=== PATIENT | female | born 1935 | race Caucasian/White ===

== ENCOUNTER 2016-12-25 10:43 | Inpatient (IN) | payer OTHER ==
[~2016-12-25] VITALS: Ht 152.4 cm; Wt 69.9 kg
[~2016-12-25 10:43] MED LIST: KEFLEX500 MG PO; ULTRAM50 MG PO; ZOCOR20 MG PO
[2016-12-25 12:02] LABS: EOSINOPHIL (%) 1.2 % (0-5); EOSINOPHIL COUNT 0.1 K/uL (0-0.3); HEMATOCRIT 41.8 % (36.0-46.0); IMMATURE GRANULOCYTE (%) 0.4 % (0.0-0.7); INSTRUMENT ABS NEUTROPHIL CT 5.2 K/uL; LYMPHOCYTE COUNT 1.8 K/uL (1.0-2.8); MCH 29.1 PG (29.0-34.0); MCHC 33.3 G/DL (30.0-36.0); MCV 87.4 FL (83-99); MEAN PLAT.VOLUME 11.5 uM^3 (9.5-12.4); MONOCYTE (%) 7.3 % (3-12); MONOCYTE COUNT 0.6 K/uL (0-0.8); NEUTROPHIL (%) 67.7 % (45-76); NEUTROPHIL COUNT 5.2 K/uL (1.8-6.4); PLATELET COUNT 237 K/uL (156-360); RBC DIS.WIDTH-CV 12.3 % (11.8-14.6); RBC DIS.WIDTH-SD 39.6 % (39-53); RED BLOOD COUNT 4.78 M/uL (3.80-5.20); WHITE BLOOD COUNT 7.7 K/uL (4.1-10.2)
[2016-12-25 12:05] LABS: ADD MIUA? YES; BILIRUBIN NEGATIVE; BLOOD SMALL; COLOR YELLOW ((YELLOW)); GLUCOSE (STRIP) NEGATIVE; KETONES 5; LEUKOCYTES LARGE; NITRITE POSITIVE; PROTEIN (STRIP) 30; SPECIFIC GRAVITY 1.017 (1.000-1.030); UROBILINOGEN 0.2 MG/DL (0.2-1.0)
[2016-12-25 12:08] LABS: BACTERIA 3+ /HPF; EPITHELIAL CELLS RARE /HPF; MUCUS 1+ /LPF; RED BLOOD CELLS 20-30 /HPF (0-5); WHITE BLOOD CELLS TNTC /HPF (0-5)
[2016-12-25 12:12] LABS: CHLORIDE 105 mEq/L (99-109); POTASSIUM 3.6 mEq/L (3.7-5.4); SODIUM 140 mEq/L (136-147)
[2016-12-25 12:14] LABS: GLUCOSE 104 mg/dL (70-99)
[2016-12-25 12:15] LABS: ANION GAP 10 MEQ/L (2-14)
[2016-12-25 12:18] LABS: GFR ESTIMATE (CALCULATED) > 59 mL/min/
[2016-12-25 12:19] LABS: UREA NITROGEN (BUN) 17 mg/dL (9-23)
[2016-12-25 13:34] LABS: TROP-I INTERPRETATION NEGATIVE; TROPONIN-I < 0.01 ng/mL (0.0-0.30)
[2016-12-25] MEDS ORDERED: CYANOCOBALAM1000 MCG PO (14:42)
[2016-12-25] MEDS ORDERED: VITAMIN B-6100 MG PO (14:43)
[2016-12-25] MEDS ORDERED: VASELINE454 GM TP (14:44)
[2016-12-25] MEDS ORDERED: ADVIL200 MG PO (14:44)
[2016-12-25 16:55] VITALS: BP 174/74
[2016-12-25 17:40] VITALS: BP 160/67
[2016-12-25 19:40] VITALS: BP 165/72
[2016-12-25 23:13] VITALS: BP 174/74
[2016-12-26] VITALS (7 sets, daily range): BP systolic 112–189; BP diastolic 53–80
[2016-12-26 07:19] LABS: Estimated Average Glucose 108 mg/dL (70-123); HEMOGLOBIN A1c (GLYCOHEMOGLOB) 5.4 % HGB (Below 5.7)
[2016-12-26 07:31] LABS: ANION GAP 8 MEQ/L (2-14); CHLORIDE 109 MEQ/L (99-109); GFR ESTIMATE (CALCULATED) > 59 mL/min/; GLUCOSE 96 mg/dL (70-99); POTASSIUM 4.1 MEQ/L (3.7-5.4); SAMPLE HEMOLYSIS CHECK 0; SAMPLE ICTERIC CHECK 0; SAMPLE LIPEMIA CHECK 0; SODIUM 140 MEQ/L (136-147); UREA NITROGEN (BUN) 25 mg/dL (9-23)
[2016-12-26 07:32] LABS: HDL CHOLESTEROL 47 MG/DL (Desirable>=50); LDL CHOLESTEROL 104 mg/dL (Desirable<100); NON-HDL CHOLESTEROL 120 mg/dL (Desirable<160); TOTAL CHOLESTEROL 167 mg/dL (Desirable<200); TRIGLYCERIDES 78 MG/DL (Normal: <150)
[2016-12-27 03:53] VITALS: BP 167/74
[2016-12-27 05:34] LABS: HEMATOCRIT 35.8 % (36.0-46.0); MCH 29.6 PG (29.0-34.0); MCHC 33.5 G/DL (30.0-36.0); MCV 88.2 FL (83-99); MEAN PLAT.VOLUME 11.9 uM^3 (9.5-12.4); PLATELET COUNT 199 K/uL (156-360); RBC DIS.WIDTH-CV 13.1 % (11.8-14.6); RBC DIS.WIDTH-SD 42.4 % (39-53); RED BLOOD COUNT 4.06 M/uL (3.80-5.20); WHITE BLOOD COUNT 7.5 K/uL (4.1-10.2)
[2016-12-27 05:51] LABS: ANION GAP 8 MEQ/L (2-14); CHLORIDE 109 MEQ/L (99-109); GFR ESTIMATE (CALCULATED) 57 mL/min/; GLUCOSE 105 mg/dL (70-99); POTASSIUM 4.2 MEQ/L (3.7-5.4); SAMPLE HEMOLYSIS CHECK 0; SAMPLE ICTERIC CHECK 0; SAMPLE LIPEMIA CHECK 0; SODIUM 142 MEQ/L (136-147)
[2016-12-27 05:58] LABS: UREA NITROGEN (BUN) 39 mg/dL (9-23)
[2016-12-27 07:52] VITALS: BP 151/66
[2016-12-27 11:37] VITALS: BP 136/63
[2016-12-27 15:12] VITALS: BP 137/62
[2016-12-27 19:00] VITALS: BP 144/65
[2016-12-27 23:34] VITALS: BP 142/70
[2016-12-28 03:35] VITALS: BP 172/76
[2016-12-28 06:26] LABS: MCH 29.4 PG (29.0-34.0); MCHC 32.9 G/DL (30.0-36.0); MCV 89.2 FL (83-99); PLATELET COUNT 191 K/uL (156-360); RBC DIS.WIDTH-CV 12.9 % (11.8-14.6); RBC DIS.WIDTH-SD 42.4 % (39-53); RED BLOOD COUNT 3.81 M/uL (3.80-5.20); WHITE BLOOD COUNT 7.5 K/uL (4.1-10.2)
[2016-12-28 06:51] LABS: ANION GAP 6 MEQ/L (2-14); CHLORIDE 106 MEQ/L (99-109); GFR ESTIMATE (CALCULATED) > 59 mL/min/; GLUCOSE 109 mg/dL (70-99); POTASSIUM 4.1 MEQ/L (3.7-5.4); SAMPLE HEMOLYSIS CHECK 0; SAMPLE ICTERIC CHECK 0; SAMPLE LIPEMIA CHECK 0; SODIUM 137 MEQ/L (136-147); UREA NITROGEN (BUN) 36 mg/dL (9-23)
[2016-12-28 07:15] VITALS: BP 118/58
[2016-12-28 11:13] VITALS: BP 118/58
[2016-12-28 20:03] VITALS: BP 143/63
[2016-12-28 23:15] VITALS: BP 159/72
[2016-12-29 04:23] VITALS: BP 143/67
[2016-12-29 07:07] VITALS: BP 162/70
[2016-12-29] MEDS ORDERED: PRAVASTATIN SOD40 MG PO (07:38)
[2016-12-29] MEDS ORDERED: ASPIR-LOW81 MG PO (07:39)
[2016-12-29] MEDS ORDERED: LISINOPRIL20 MG PO (07:39)
[2016-12-29 11:17] VITALS: BP 147/67
== END 2016-12-29 16:03 | DRG 699 ==
LOC: EME 10:43 → EDOF 15:07 → 4EAST 15:07
PROVIDERS: Hospitalist; Internal Medicine; Internal Medicine Nephrology; Physician Assistant
DX: I70.1 Atherosclerosis of renal artery (principal); N39.0 Urinary tract infection, site not specified; I82.612 Acute embolism and thrombosis of superficial veins of left upper extremity; I16.0 Hypertensive urgency; R29.810 Facial weakness; E78.5 Hyperlipidemia, unspecified; I10 Essential (primary) hypertension; R21 Rash and other nonspecific skin eruption; M19.90 Unspecified osteoarthritis, unspecified site; Z91.14 Patient's other noncompliance with medication regimen; B96.20 Unspecified Escherichia coli [E. coli] as the cause of diseases classified elsewhere
CPT/HCPCS: 70450; 70551; 71020; 74185; 76770; 80048; 80061; 80069; 81003; 83036; 84484; 85025; 85027; 87077; 87086; 87186; 93005; 93971; 93975; 94799; 97530 GO; 97530 GP; 99281; 99285; J0360; J0696; J1650; J7050

== ENCOUNTER → 2017-01-25 | Outpatient (CLI) | payer OTHER ==
[~2017-01-25] MED LIST changes: +ADVIL200 MG PO; +ASPIR-LOW81 MG PO; +CYANOCOBALAM1000 MCG PO; +LISINOPRIL20 MG PO; +PRAVASTATIN SOD40 MG PO; +VASELINE454 GM TP; +VITAMIN B-6100 MG PO
== END | disposition home or self-care (01) ==
LOC: CDC 12:41
DX: I49.9 Cardiac arrhythmia, unspecified (principal); I51.7 Cardiomegaly; R94.31 Abnormal electrocardiogram [ECG] [EKG]
CPT/HCPCS: 93000

== ENCOUNTER 2017-02-15 02:42 | Inpatient (IN) | payer OTHER ==
[2017-02-15] VITALS (10 sets, daily range): BP systolic 90–183; BP diastolic 48–93
[~2017-02-15] VITALS: Ht 152.4 cm; Wt 66.5 kg
[2017-02-15 03:02] LABS: EOSINOPHIL (%) 0 % (0-5); HEMATOCRIT 37.7 % (36.0-46.0); IMMATURE GRANULOCYTE (%) 0.6 % (0.0-0.7); IMMATURE GRANULOCYTE COUNT 0.1 K/uL; INSTRUMENT ABS NEUTROPHIL CT 16.8 K/uL; LYMPHOCYTE COUNT 1.4 K/uL (1.0-2.8); MCH 29.6 PG (29.0-34.0); MCHC 34.2 G/DL (30.0-36.0); MCV 86.5 FL (83-99); MEAN PLAT.VOLUME 11.1 uM^3 (9.5-12.4); MONOCYTE (%) 8.2 % (3-12); MONOCYTE COUNT 1.6 K/uL (0-0.8); NEUTROPHIL COUNT 16.8 K/uL (1.8-6.4); RBC DIS.WIDTH-CV 12.6 % (11.8-14.6); RED BLOOD COUNT 4.36 M/uL (3.80-5.20)
[2017-02-15 03:04] LABS: PLATELET COUNT 289 K/uL (156-360)
[2017-02-15 03:13] LABS: CHLORIDE 105 mEq/L (99-109); POTASSIUM 3.2 mEq/L (3.7-5.4); SODIUM 139 mEq/L (136-147)
[2017-02-15 03:15] LABS: GLUCOSE 157 mg/dL (70-99)
[2017-02-15 03:16] LABS: ANION GAP 12 MEQ/L (2-14)
[2017-02-15 03:17] LABS: TOTAL BILIRUBIN 0.6 mg/dL (0.0-1.0)
[2017-02-15 03:18] LABS: ALKALINE PHOSPHATASE 98 IU/L (3-129)
[2017-02-15 03:19] LABS: GFR ESTIMATE (CALCULATED) 57 mL/min/
[2017-02-15 03:20] LABS: UREA NITROGEN (BUN) 22 mg/dL (9-23)
[2017-02-15 03:38] LABS: ADD MIUA? YES; BILIRUBIN NEGATIVE; BLOOD MODERATE; COLOR YELLOW ((YELLOW)); GLUCOSE (STRIP) NEGATIVE; KETONES 5; LEUKOCYTES LARGE; NITRITE POSITIVE; PROTEIN (STRIP) 100; SPECIFIC GRAVITY 1.018 (1.000-1.030); UROBILINOGEN 0.2 MG/DL (0.2-1.0)
[2017-02-15 03:52] LABS: EPITHELIAL CELLS 3+ /HPF; MUCUS 2+ /LPF; WHITE BLOOD CELLS 30-40 /HPF (0-5)
[2017-02-15 03:53] LABS: BACTERIA 2+ /HPF; CASTS PRESENT /LPF; CRYSTALS NONE SEEN; HYALINE CASTS 0-5 /LPF; UCUL ADDED? YES
[2017-02-15 04:52] LABS: D-DIMER ELISA 1.18 mg/L FEU (< 0.57)
[2017-02-15 05:05] LABS: TROP-I INTERPRETATION NEGATIVE; TROPONIN-I 0.07 ng/mL (0.0-0.30)
[2017-02-15 08:10] LABS: HEMATOCRIT 32.7 % (36.0-46.0); MCH 29.6 PG (29.0-34.0); MCHC 33.9 G/DL (30.0-36.0); MCV 87.2 FL (83-99); MEAN PLAT.VOLUME 11.4 uM^3 (9.5-12.4); PLATELET COUNT 259 K/uL (156-360); RBC DIS.WIDTH-CV 12.7 % (11.8-14.6); RBC DIS.WIDTH-SD 40.4 % (39-53); RED BLOOD COUNT 3.75 M/uL (3.80-5.20); WHITE BLOOD COUNT 17.2 K/uL (4.1-10.2)
[2017-02-15 08:34] LABS: CHLORIDE 109 mEq/L (99-109); POTASSIUM 3.3 mEq/L (3.7-5.4); SODIUM 140 mEq/L (136-147)
[2017-02-15 08:36] LABS: GLUCOSE 121 mg/dL (70-99)
[2017-02-15 08:37] LABS: ANION GAP 8 MEQ/L (2-14)
[2017-02-15 08:39] LABS: ALKALINE PHOSPHATASE 87 IU/L (3-129)
[2017-02-15 08:40] LABS: GFR ESTIMATE (CALCULATED) > 59 mL/min/
[2017-02-15 08:41] LABS: UREA NITROGEN (BUN) 18 mg/dL (9-23)
[2017-02-15 08:43] LABS: TOTAL BILIRUBIN 0.4 mg/dL (0.0-1.0)
[2017-02-15 09:02] LABS: Estimated Average Glucose 114 mg/dL (70-123); HEMOGLOBIN A1c (GLYCOHEMOGLOB) 5.6 % HGB (Below 5.7)
[2017-02-15] MEDS ORDERED: LISINOPRIL20 MG PO (10:23)
[2017-02-15] MEDS ORDERED: CLOPIDOGREL75 MG PO (10:23)
[2017-02-15] MEDS ORDERED: ADVIL,NUPRIN,M200 MG PO (10:23)
[2017-02-15 12:00] LABS: TROP-I INTERPRETATION NEGATIVE; TROPONIN-I 0.26 ng/mL (0.0-0.30)
[2017-02-15 13:45] LABS: BASE EXCESS -13.4 mEq/L (-3 to +3); BICARBONATE 18.4 mEq/L (22-26); CARBOXY HGB 1.9 % (0-5); METHEMOGLOBIN 2.1 % (0-1.5); PCO2 68 mm Hg (35-45); PO2 63 mm Hg (80-100)
[2017-02-15 13:46] LABS: COMMENTS - BLOOD GASES NAC+MD AWARE; DEVICE NRBM; O2 FLOW 15 L/MIN; SITE RR; TOTAL RESP RATE 28 resp/min; pH 7.04 (7.35-7.45)
[2017-02-15 15:57] LABS: C DIFF TOXIN NEGATIVE (NEGATIVE)
[2017-02-15 15:58] LABS: PROBE CHECK PASS; SPECIMEN PROCESSING CONTROL PASS
[2017-02-15 18:08] LABS: TROP-I INTERPRETATION POSITIVE; TROPONIN-I 0.68 ng/mL (0.0-0.30)
[2017-02-15 19:10] LABS: INTER. NORMALIZED RATIO 1.1; PROTHROMBIN TIME 11.4 (9.2-11.2); PTT 27.3 (25-32)
[2017-02-15 20:20] LABS: METH RESISTANT S AUREUS PCR NEGATIVE (NEGATIVE)
[2017-02-15 20:34] LABS: PROBE CHECK PASS; SPECIMEN PROCESSING CONTROL PASS
[2017-02-16] VITALS (24 sets, daily range): BP systolic 66–170; BP diastolic 37–95
[2017-02-16 04:53] LABS: MCH 29.4 PG (29.0-34.0); MCHC 32.8 G/DL (30.0-36.0); MCV 89.8 FL (83-99); RBC DIS.WIDTH-CV 13.1 % (11.8-14.6); RBC DIS.WIDTH-SD 43.8 % (39-53); RED BLOOD COUNT 4.01 M/uL (3.80-5.20)
[2017-02-16 04:54] LABS: WHITE BLOOD COUNT 24.7 K/uL (4.1-10.2)
[2017-02-16 05:11] LABS: CHLORIDE 113 mEq/L (99-109); SODIUM 142 mEq/L (136-147)
[2017-02-16 05:12] LABS: GLUCOSE 144 mg/dL (70-99)
[2017-02-16 05:14] LABS: ANION GAP 10 MEQ/L (2-14)
[2017-02-16 05:19] LABS: GFR ESTIMATE (CALCULATED) 38 mL/min/; POTASSIUM 5.7 mEq/L (3.7-5.4); UREA NITROGEN (BUN) 29 mg/dL (9-23)
[2017-02-16 06:19] LABS: PLAT.SUFFICIENCY ADEQUATE; PLATELET COUNT 286 K/uL (156-360)
[2017-02-16 06:47] LABS: CREATINE KINASE 106 IU/L (1-294)
[2017-02-16 06:54] LABS: TROP-I INTERPRETATION POSITIVE; TROPONIN-I 1.36 ng/mL (0.0-0.30)
[2017-02-16 12:18] LABS: ANION GAP 9 MEQ/L (2-14); CHLORIDE 109 MEQ/L (99-109); SAMPLE HEMOLYSIS CHECK 0; SAMPLE ICTERIC CHECK 0; SAMPLE LIPEMIA CHECK 0; SODIUM 138 MEQ/L (136-147)
[2017-02-16 12:21] LABS: POTASSIUM 4.2 MEQ/L (3.7-5.4)
[2017-02-16 12:23] LABS: GFR ESTIMATE (CALCULATED) 46 mL/min/; GLUCOSE 115 mg/dL (70-99); UREA NITROGEN (BUN) 31 mg/dL (9-23)
[2017-02-16 12:24] LABS: TROP-I INTERPRETATION INDETERMINATE; TROPONIN-I 0.59 ng/mL (0.0-0.30)
[2017-02-16 13:11] LABS: UR CREATININE CONCENTRATION 184.9 MG/DL
[2017-02-16 18:35] LABS: ANION GAP 9 MEQ/L (2-14); CHLORIDE 104 MEQ/L (99-109); GFR ESTIMATE (CALCULATED) 33 mL/min/; GLUCOSE 137 mg/dL (70-99); POTASSIUM 4.1 MEQ/L (3.7-5.4); SAMPLE HEMOLYSIS CHECK 0; SAMPLE ICTERIC CHECK 0; SAMPLE LIPEMIA CHECK 0; SODIUM 133 MEQ/L (136-147); UREA NITROGEN (BUN) 34 mg/dL (9-23)
[2017-02-17] VITALS (24 sets, daily range): BP systolic 0–212; BP diastolic 0–157
[2017-02-17 08:40] LABS: EOSINOPHIL (%) 0.1 % (0-5); HEMATOCRIT 34.9 % (36.0-46.0); IMMATURE GRANULOCYTE (%) 0.6 % (0.0-0.7); IMMATURE GRANULOCYTE COUNT 0.1 K/uL; INSTRUMENT ABS NEUTROPHIL CT 14.2 K/uL; MCH 29.6 PG (29.0-34.0); MCHC 33.5 G/DL (30.0-36.0); MCV 88.4 FL (83-99); MEAN PLAT.VOLUME 11.6 uM^3 (9.5-12.4); MONOCYTE (%) 6.2 % (3-12); MONOCYTE COUNT 1.1 K/uL (0-0.8); NEUTROPHIL (%) 81.4 % (45-76); NEUTROPHIL COUNT 14.2 K/uL (1.8-6.4); PLATELET COUNT 313 K/uL (156-360); RBC DIS.WIDTH-CV 13.2 % (11.8-14.6); RED BLOOD COUNT 3.95 M/uL (3.80-5.20); WHITE BLOOD COUNT 17.5 K/uL (4.1-10.2)
[2017-02-17 09:01] LABS: CHLORIDE 107 mEq/L (99-109); SODIUM 138 mEq/L (136-147)
[2017-02-17 09:02] LABS: GLUCOSE 106 mg/dL (70-99)
[2017-02-17 09:04] LABS: ANION GAP 7 MEQ/L (2-14)
[2017-02-17 09:06] LABS: GFR ESTIMATE (CALCULATED) 42 mL/min/
[2017-02-17 09:07] LABS: UREA NITROGEN (BUN) 28 mg/dL (9-23)
[2017-02-17 10:16] LABS: TROP-I INTERPRETATION INDETERMINATE; TROPONIN-I 0.59 ng/mL (0.0-0.30)
[2017-02-17 16:07] LABS: TROP-I INTERPRETATION POSITIVE; TROPONIN-I 0.72 ng/mL (0.0-0.30)
[2017-02-18] VITALS (14 sets, daily range): BP systolic 136–173; BP diastolic 52–87
[2017-02-18 08:23] LABS: HEMATOCRIT 31.3 % (36.0-46.0); MCH 30.2 PG (29.0-34.0); MCHC 33.5 G/DL (30.0-36.0); MCV 89.9 FL (83-99); MEAN PLAT.VOLUME 11.9 uM^3 (9.5-12.4); PLATELET COUNT 299 K/uL (156-360); RBC DIS.WIDTH-CV 13.2 % (11.8-14.6); RBC DIS.WIDTH-SD 43.8 % (39-53); RED BLOOD COUNT 3.48 M/uL (3.80-5.20); WHITE BLOOD COUNT 15.8 K/uL (4.1-10.2)
[2017-02-18 08:48] LABS: ANION GAP 9 MEQ/L (2-14); CHLORIDE 106 MEQ/L (99-109); GFR ESTIMATE (CALCULATED) 46 mL/min/; GLUCOSE 101 mg/dL (70-99); MAGNESIUM 1.9 mg/dl (1.3-2.7); POTASSIUM 4.2 MEQ/L (3.7-5.4); SAMPLE HEMOLYSIS CHECK 0; SAMPLE ICTERIC CHECK 0; SAMPLE LIPEMIA CHECK 0; SODIUM 140 MEQ/L (136-147); UREA NITROGEN (BUN) 27 mg/dL (9-23)
[2017-02-18 08:53] LABS: TROP-I INTERPRETATION INDETERMINATE; TROPONIN-I 0.57 ng/mL (0.0-0.30)
[2017-02-18 13:44] LABS: TROP-I INTERPRETATION INDETERMINATE; TROPONIN-I 0.53 ng/mL (0.0-0.30)
[2017-02-18 19:06] LABS: TROP-I INTERPRETATION INDETERMINATE; TROPONIN-I 0.55 ng/mL (0.0-0.30)
[2017-02-19] VITALS (12 sets, daily range): BP systolic 140–174; BP diastolic 60–103
[2017-02-19 06:46] LABS: HEMATOCRIT 31.2 % (36.0-46.0); MCH 29.3 PG (29.0-34.0); MCV 88.9 FL (83-99); MEAN PLAT.VOLUME 11.7 uM^3 (9.5-12.4); PLATELET COUNT 308 K/uL (156-360); RBC DIS.WIDTH-SD 42.2 % (39-53); RED BLOOD COUNT 3.51 M/uL (3.80-5.20)
[2017-02-19 07:17] LABS: ANION GAP 8 MEQ/L (2-14); CHLORIDE 108 MEQ/L (99-109); GFR ESTIMATE (CALCULATED) 51 mL/min/; GLUCOSE 95 mg/dL (70-99); SAMPLE HEMOLYSIS CHECK 0; SAMPLE ICTERIC CHECK 0; SAMPLE LIPEMIA CHECK 0; SODIUM 143 MEQ/L (136-147); UREA NITROGEN (BUN) 24 mg/dL (9-23)
[2017-02-20] VITALS (7 sets, daily range): BP systolic 115–178; BP diastolic 64–77
[2017-02-20 06:57] LABS: HEMATOCRIT 32.2 % (36.0-46.0); MCHC 33.9 G/DL (30.0-36.0); MCV 88.7 FL (83-99); MEAN PLAT.VOLUME 11.6 uM^3 (9.5-12.4); PLATELET COUNT 341 K/uL (156-360); RBC DIS.WIDTH-CV 13.1 % (11.8-14.6); RBC DIS.WIDTH-SD 42.3 % (39-53); RED BLOOD COUNT 3.63 M/uL (3.80-5.20); WHITE BLOOD COUNT 13.3 K/uL (4.1-10.2)
[2017-02-20 07:19] LABS: ANION GAP 7 MEQ/L (2-14); CHLORIDE 107 MEQ/L (99-109); GFR ESTIMATE (CALCULATED) 57 mL/min/; GLUCOSE 86 mg/dL (70-99); POTASSIUM 4.2 MEQ/L (3.7-5.4); SAMPLE HEMOLYSIS CHECK 0; SAMPLE ICTERIC CHECK 0; SAMPLE LIPEMIA CHECK 0; SODIUM 139 MEQ/L (136-147); UREA NITROGEN (BUN) 22 mg/dL (9-23)
[2017-02-21 04:00] VITALS: BP 138/63
[2017-02-21 06:40] LABS: HEMATOCRIT 32.2 % (36.0-46.0); MCH 29.6 PG (29.0-34.0); MCHC 33.5 G/DL (30.0-36.0); MCV 88.2 FL (83-99); MEAN PLAT.VOLUME 11.1 uM^3 (9.5-12.4); PLATELET COUNT 352 K/uL (156-360); RBC DIS.WIDTH-CV 12.8 % (11.8-14.6); RBC DIS.WIDTH-SD 41.2 % (39-53); RED BLOOD COUNT 3.65 M/uL (3.80-5.20); WHITE BLOOD COUNT 13.4 K/uL (4.1-10.2)
[2017-02-21 07:15] LABS: ANION GAP 8 MEQ/L (2-14); CHLORIDE 104 MEQ/L (99-109); GFR ESTIMATE (CALCULATED) > 59 mL/min/; GLUCOSE 90 mg/dL (70-99); MAGNESIUM 1.9 mg/dl (1.3-2.7); POTASSIUM 4.2 MEQ/L (3.7-5.4); SAMPLE HEMOLYSIS CHECK 0; SAMPLE ICTERIC CHECK 0; SAMPLE LIPEMIA CHECK 0; SODIUM 141 MEQ/L (136-147); UREA NITROGEN (BUN) 21 mg/dL (9-23)
[2017-02-21 07:55] VITALS: BP 130/67
[2017-02-21 12:18] VITALS: BP 158/69
[2017-02-21 15:44] VITALS: BP 146/65
[2017-02-21 20:16] VITALS: BP 135/62
[2017-02-22] VITALS (7 sets, daily range): BP systolic 140–172; BP diastolic 66–79
[2017-02-22 05:52] LABS: HEMATOCRIT 33.2 % (36.0-46.0); MCH 29.6 PG (29.0-34.0); MCHC 33.7 G/DL (30.0-36.0); MCV 87.6 FL (83-99); MEAN PLAT.VOLUME 11.1 uM^3 (9.5-12.4); PLATELET COUNT 371 K/uL (156-360); RBC DIS.WIDTH-CV 12.9 % (11.8-14.6); RBC DIS.WIDTH-SD 40.8 % (39-53); RED BLOOD COUNT 3.79 M/uL (3.80-5.20); WHITE BLOOD COUNT 13.7 K/uL (4.1-10.2)
[2017-02-22 06:16] LABS: ANION GAP 10 MEQ/L (2-14); CHLORIDE 104 MEQ/L (99-109); GFR ESTIMATE (CALCULATED) > 59 mL/min/; GLUCOSE 100 mg/dL (70-99); POTASSIUM 4.1 MEQ/L (3.7-5.4); SAMPLE HEMOLYSIS CHECK 0; SAMPLE ICTERIC CHECK 0; SAMPLE LIPEMIA CHECK 0; SODIUM 140 MEQ/L (136-147); UREA NITROGEN (BUN) 23 mg/dL (9-23)
[2017-02-23 03:46] VITALS: BP 149/69
[2017-02-23 05:54] LABS: HEMATOCRIT 31.3 % (36.0-46.0); MCH 29.9 PG (29.0-34.0); MCHC 33.5 G/DL (30.0-36.0); MCV 89.2 FL (83-99); MEAN PLAT.VOLUME 11.6 uM^3 (9.5-12.4); PLATELET COUNT 345 K/uL (156-360); RBC DIS.WIDTH-CV 13.2 % (11.8-14.6); RBC DIS.WIDTH-SD 42.2 % (39-53); RED BLOOD COUNT 3.51 M/uL (3.80-5.20); WHITE BLOOD COUNT 10.8 K/uL (4.1-10.2)
[2017-02-23 06:50] LABS: ANION GAP 9 MEQ/L (2-14); CHLORIDE 104 MEQ/L (99-109); GFR ESTIMATE (CALCULATED) 57 mL/min/; GLUCOSE 100 mg/dL (70-99); POTASSIUM 4.1 MEQ/L (3.7-5.4); SAMPLE HEMOLYSIS CHECK 0; SAMPLE ICTERIC CHECK 0; SAMPLE LIPEMIA CHECK 0; SODIUM 138 MEQ/L (136-147); UREA NITROGEN (BUN) 20 mg/dL (9-23)
[2017-02-23] MEDS ORDERED: CEFDINIR300 MG PO (07:50)
[2017-02-23] MEDS ORDERED: ASPIR-LOW81 MG PO (07:52)
[2017-02-23] MEDS ORDERED: LOPRESSOR25 MG PO (07:52)
[2017-02-23] MEDS ORDERED: NIFEDIPINE ER30 MG PO (07:52)
[2017-02-23] MEDS ORDERED: TYLENOL REGULA325 MG PO (07:52)
[2017-02-23 08:30] VITALS: BP 148/65
[2017-02-23] MEDS ORDERED: PRAVASTATIN SOD40 MG PO (09:06)
[2017-02-23 12:30] VITALS: BP 132/61
[2017-02-23 18:00] VITALS: BP 147/67
[2017-02-23 20:00] VITALS: BP 144/65
[2017-02-23 23:55] VITALS: BP 136/63
[2017-02-24 04:06] VITALS: BP 147/74
[2017-02-24 05:47] LABS: HEMATOCRIT 32.6 % (36.0-46.0); MCV 88.1 FL (83-99); MEAN PLAT.VOLUME 11.4 uM^3 (9.5-12.4); PLATELET COUNT 393 K/uL (156-360); RBC DIS.WIDTH-CV 13.2 % (11.8-14.6); RBC DIS.WIDTH-SD 41.8 % (39-53); WHITE BLOOD COUNT 9.8 K/uL (4.1-10.2)
[2017-02-24 06:14] LABS: ANION GAP 9 MEQ/L (2-14); CHLORIDE 103 MEQ/L (99-109); GFR ESTIMATE (CALCULATED) 51 mL/min/; GLUCOSE 94 mg/dL (70-99); MAGNESIUM 2.1 mg/dl (1.3-2.7); POTASSIUM 3.9 MEQ/L (3.7-5.4); SAMPLE HEMOLYSIS CHECK 0; SAMPLE ICTERIC CHECK 0; SAMPLE LIPEMIA CHECK 0; SODIUM 138 MEQ/L (136-147); UREA NITROGEN (BUN) 22 mg/dL (9-23)
[2017-02-24 08:15] VITALS: BP 137/65
[2017-02-24 12:06] VITALS: BP 152/69
[2017-02-24 16:00] VITALS: BP 153/67
[2017-02-24 20:00] VITALS: BP 124/58
[2017-02-24 23:55] VITALS: BP 143/64
[2017-02-25 04:12] VITALS: BP 148/67
[2017-02-25 07:01] VITALS: BP 184/80
[2017-02-25 12:53] VITALS: BP 133/65
[2017-02-25 16:29] VITALS: BP 137/63
[2017-02-25 19:17] VITALS: BP 139/65
[2017-02-26 00:09] VITALS: BP 119/57
[2017-02-26 03:46] VITALS: BP 144/68
[2017-02-26 09:00] VITALS: BP 129/61
[2017-02-26 12:00] VITALS: BP 134/59
[2017-02-26 17:11] VITALS: BP 137/60
== END 2017-02-26 17:58 | DRG 871 ==
LOC: EME → EDBD 02:42 → EME 02:42 → 4EAST 04:21 → 5SOUTH 04:21 → 4WEST 04:21 → EDOF 04:21 → 2EASTP 07:48 → 4WEST 14:11 → 5SOUTH 02-19 20:37 → 4EAST 02-22 16:59
PROVIDERS: Emergency Medicine; Internal Medicine; Internal Medicine Critical Care Medicine
DX: A41.51 Sepsis due to Escherichia coli [E. coli] (principal); N39.0 Urinary tract infection, site not specified; I16.0 Hypertensive urgency; R65.21 Severe sepsis with septic shock; I13.0 Hypertensive heart and chronic kidney disease with heart failure and stage 1 through stage 4 chronic kidney disease, or unspecified chronic kidney disease; I50.21 Acute systolic (congestive) heart failure; J96.02 Acute respiratory failure with hypercapnia; N17.9 Acute kidney failure, unspecified; R57.0 Cardiogenic shock; I21.4 Non-ST elevation (NSTEMI) myocardial infarction; E87.5 Hyperkalemia; E87.2 Acidosis; J18.9 Pneumonia, unspecified organism; Z66 Do not resuscitate; N18.2 Chronic kidney disease, stage 2 (mild); I42.9 Cardiomyopathy, unspecified; I25.10 Atherosclerotic heart disease of native coronary artery without angina pectoris; E87.6 Hypokalemia; E78.5 Hyperlipidemia, unspecified; R73.9 Hyperglycemia, unspecified; E78.00 Pure hypercholesterolemia, unspecified; Z79.82 Long term (current) use of aspirin; Z95.828 Presence of other vascular implants and grafts; Z79.02 Long term (current) use of antithrombotics/antiplatelets; I34.0 Nonrheumatic mitral (valve) insufficiency
CPT/HCPCS: 36600; 71010; 71275; 76770; 78452; 80048; 80048 91; 80053; 81003; 82436; 82550; 82570; 82803; 83036; 83605; 83735; 83880; 83935; 84100; 84133; 84300; 84484; 85025; 85027; 85379; 85610; 85730; 87040; 87077; 87086; 87186; 87493; 87641; 87801; 93005; 93017; 93306; 94002; 94003; 94640; 94640 76; 94760; 94799; 97530 GP; 99202; 99281; 99284; A9500; C1769; C1887; J0696; J1250; J1644; J1940; J2250; J2270; J2405; J2543; J2785; J3010; J3480; J7030; J7040; J7050; J7120